=== PATIENT | female | born 1985 | race Caucasian/White ===

== ENCOUNTER → 2017-10-13 15:43 | Outpatient (CLI) | payer BC, SELFPAY ==
[2017-10-19 12:48] LABS: HPV Reflexed? NOT INDICATED
== END ==
PROVIDERS: Visit Provider Obstetrics & Gynecology
DX: Z12.4 Encounter for screening for malignant neoplasm of cervix (principal)
CPT/HCPCS: 88175; G0145

== ENCOUNTER → 2020-04-20 | Outpatient (CLI) | payer BC, SELFPAY ==
[2019-09-10 19:23] VITALS: BMI 25.1
[2020-04-24 20:09] LABS: HPV Reflexed? NOT INDICATED
== END | disposition home or self-care (01) ==
LOC: LABSPEC 16:45
PROVIDERS: PCP Internal Medicine; Visit Provider Student in an Organized Health Care Education/Training Program
DX: Z12.4 Encounter for screening for malignant neoplasm of cervix (principal)
CPT/HCPCS: 88175; G0145

== ENCOUNTER → 2020-05-15 | Outpatient (CLI) | payer BC, SELFPAY ==
[2019-09-10 19:23] VITALS: BMI 25.1
[2020-05-24 07:49] LABS: 5-HIAA, 24UR 2.7 mg/24 hr (0.0-14.9)
== END | disposition home or self-care (01) ==
LOC: LAB 06:21 → LABSPEC 06:22
DX: D3A.00 Benign carcinoid tumor of unspecified site (principal)
CPT/HCPCS: 81050; 83497

== ENCOUNTER 2021-06-28 13:06 | Outpatient (CLI) | payer BC, SELFPAY ==
[2021-07-06 16:50] LABS: HPV APTIMA, High Risk Negative (Negative)
== END 2021-06-28 23:59 | disposition home or self-care (01) ==
PROVIDERS: Referring Provider Student in an Organized Health Care Education/Training Program; Visit Provider Student in an Organized Health Care Education/Training Program
DX: Z12.4 Encounter for screening for malignant neoplasm of cervix (principal)
CPT/HCPCS: 87624; 88175; G0145

== ENCOUNTER 2021-06-30 07:20 | Outpatient (CLI) | payer BC, SELFPAY ==
[2021-07-16 13:32] LABS: 5-HIAA, 24UR 3.8 mg/24 hr (0.0-14.9); 5-HIAA, UR 1.6 mg/L (Undefined)
== END 2021-06-30 23:59 | disposition home or self-care (01) ==
LOC: LABSPEC 07:24
PROVIDERS: Referring Provider Student in an Organized Health Care Education/Training Program; Visit Provider Student in an Organized Health Care Education/Training Program
DX: C7A.00 Malignant carcinoid tumor of unspecified site (principal)
CPT/HCPCS: 81050; 83497

== ENCOUNTER → 2022-08-31 | Outpatient (CLI) | payer BC, SELFPAY ==
[2022-09-03 13:07] LABS: HPV APTIMA, High Risk Negative (Negative)
== END | disposition home or self-care (01) ==
LOC: LABSPEC 10:06
PROVIDERS: Visit Provider Student in an Organized Health Care Education/Training Program
DX: Z12.4 Encounter for screening for malignant neoplasm of cervix (principal)
CPT/HCPCS: 87624; 88175; G0145

== ENCOUNTER → 2022-09-02 | Outpatient (CLI) | payer SELFPAY ==
[2022-09-06 22:06] LABS: 5-HIAA, 24UR 3.4 mg/24 hr (0.0-14.9); 5-HIAA, UR 2.8 mg/L (Undefined)
== END | disposition home or self-care (01) ==
PROVIDERS: Visit Provider Student in an Organized Health Care Education/Training Program
DX: C7A.00 Malignant carcinoid tumor of unspecified site (principal)
CPT/HCPCS: 81050; 83497

== ENCOUNTER → 2023-11-06 | Outpatient (CLI) | payer OTHER, SELFPAY ==
[2023-11-06 22:17] LABS: Absolute Lymphocyte Count 2.22 X10^3/uL (0.83-4.51); Absolute Neutrophil Count 3.5 X10^3/uL (2.0-7.7); Basophil# 0.05 X10^3/uL; Basophil% 0.8 % (0-1); Eosinophil# 0.11 X10^3/uL; Eosinophils% 1.8 % (0-5); Hematocrit 39.5 % (37-47); Hemoglobin 12.9 g/dL (12.0-15.0); Lymphocyte # 2.22 X10^3/ul (0.83-4.51); Lymphocyte % 35.4 % (19-41); Mean Corp Hgb Conc 32.7 g/dL (32-36); Mean Corpuscular Hgb 30.6 pg (27.0-32.0); Mean Corpuscular Volume 93.8 fL (81-99); Mean Platelet Vol. 10.8 fl (6.2-12.0); Monocyte# 0.42 X10^3/uL; Monocyte% 6.7 % (0-10); NRBC Flagged by Analyzer 0 % (0-5); Neutrophil # 3.45 X10^3/uL (2.7-7.7); Platelet Count 299 K/mm3 (150-450); RBC Distribution Width CV 12.6 % (11.6-14.6); RBC Distribution Width SD 43.5 fl (35.1-43.9); Red Blood Count 4.21 M/mm3 (4.2-5.4); White Blood Count 6.3 K/mm3 (4.4-11.0)
[2023-11-06 22:32] LABS: ALB/GLOB Ratio 1.1 RATIO (0.9-2.4); AST(SGOT) 15 U/L (15-37); Alanine Aminotransfer ALT/SGPT 21 U/L (13-56); Albumin, Serum 3.8 g/dL (3.2-5.0); Alkaline Phosphatase 53 U/L (45-117); Anion Gap 6 (5-15); BUN 9 mg/dL (7-18); BUN/Creat Ratio 12.4 RATIO (10-20); Calcium,Total 9.2 mg/dL (8.5-10.1); Chloride 107 mmol/L (98-107); Cholesterol 190 mg/dL (200); Creatinine, Serum 0.73 mg/dL (0.55-1.02); EST Glomerular Filtration Rate 94 mL/min (>60); Est Glom Filt Rate - Afr Amer 114 mL/min (>60); Globulin 3.5 g/dL (2.2-4.2); Glucose 90 mg/dL (74-106); High Density Lipoprotein 53 mg/dL; Potassium 4.1 mmol/L (3.5-5.1); Protein, Total 7.3 g/dL (6.4-8.2); Sodium Level 140 mmol/L (136-145); Triglycerides 148 mg/dL; Very Low Density Lipoprotein 30 mg/dL (5-40)
== END | disposition home or self-care (01) ==
PROVIDERS: Referring Provider Nurse Practitioner; Visit Provider Nurse Practitioner
DX: Z00.00 Encounter for general adult medical examination without abnormal findings (principal)
CPT/HCPCS: 80053; 80061; 85025

== ENCOUNTER → 2024-12-16 | Outpatient (CLI) | payer OTHER, SELFPAY ==
[2024-12-16 22:59] LABS: Hematocrit 39.7 % (37-47); Hemoglobin 13.7 g/dL (12.0-15.0); Immature Granulocytes Count 0.020 X10^3/uL (0.0-0.0); Mean Corp Hgb Conc 34.5 g/dL (32-36); Mean Corpuscular Volume 92.5 fL (81-99); Mean Platelet Vol. 10.5 fl (6.2-12.0); NRBC Flagged by Analyzer 0 % (0-5); Platelet Count 310 K/mm3 (150-450); RBC Distribution Width CV 12.3 % (11.6-14.6); RBC Distribution Width SD 41.9 fl (35.1-43.9); Red Blood Count 4.29 M/mm3 (4.2-5.4); White Blood Count 7.9 K/mm3 (4.4-11.0)
[2024-12-16 23:23] LABS: AST(SGOT) 24 U/L (<=31); Alanine Aminotransfer ALT/SGPT 11 U/L (<=34); Albumin, Serum 4.5 g/dL (3.5-5.0); Alkaline Phosphatase 52 U/L (35-104); Anion Gap 11 (5-15); BUN 10 mg/dL (4-19); BUN/Creat Ratio 13.9 RATIO (10-20); Calcium,Total 9.6 mg/dL (7.6-11.0); Carbon Dioxide 22.3 mmol/L (21.0-32.0); Chloride 104 mmol/L (98-108); Cholesterol 181 mg/dL (<=200); Globulin 2.7 g/dL (2.2-4.2); Glucose 94 mg/dL (70-99); Low Density Lipoprotein Calc. 99 mg/dL; Potassium 4.3 mmol/L (3.3-5.1); Triglycerides 97 mg/dL; Very Low Density Lipoprotein 19 mg/dL (5-40); cholesterol:hdl ratio screen 2.89
== END | disposition home or self-care (01) ==
PROVIDERS: PCP Nurse Practitioner; Referring Provider Nurse Practitioner; Visit Provider Nurse Practitioner
DX: Z00.00 Encounter for general adult medical examination without abnormal findings (principal)
CPT/HCPCS: 80053; 80061; 85025